=== PATIENT | male | born 1995 | race African-American/Black ===

== ENCOUNTER 2017-04-21 14:21 | Emergency (ER) | payer OTHER ==
--- NOTE | 2017-04-21 14:17 | EDPHY ---
H & P Constitutional: Initial Vital Signs Temperature (C) 36.5 C 04/21/17 14:21 Heart Rate 73 04/21/17 14:21 Respiratory Rate 18 04/21/17 14:21 Blood Pressure 140/94 H 04/21/17 14:21 O2 Sat (%) 96 04/21/17 14:21 O2 Delivery Mode Room Air Allergies/Adverse Reactions: peanut Allergy (Verified 04/21/17 14:29) Home Medications: Medication Instructions Recorded Xanax 04/21/17 Medical Decision Making - Diagnostics Imaging: Discussed imaging studies w/ machine scallop cutter Radiologist, I viewed and interpreted images myself - Diagnostics Imaging Results: Imaging Impressions Head CT 04/21/17 14:24 Impression: Negative. No acute fracture or evidence of acute intracranial injury. Findings discussed with Emergency Department physician bilingual executive assistant, Rell Wilkerson PA-C on April 21, 2017 at 1508 hours. ED Course/Re-evaluation: CHIEF COMPLAINT: Seizure, headache HISTORY OF PRESENT ILLNESS: The patient is a 21 y/o male arriving via EMS in a c-collar following a witnessed seizure this afternoon. He remembers skateboarding to work this afternoon and then nothing until arriving in the ED. It is unknown if he fell and then seized or had a seizure and then falling. He is currently complaining of a mild occipital headache. He denies weakness, paresthesias, midline spinal pain, incontinence, injury, or other complaints. He does mention using Xanax and Ecstasy regularly for recreation. His last Xanax use was 2 days ago. He denies history of seizure disorder or withdrawal seizures related to alcohol or benzodiazepine use. No other pertinent medical history. REVIEW OF SYSTEMS: A 10 point review of systems was performed and is negative with the exception of the elements mentioned in the history of present illness. PHYSICAL EXAM: HR, BP, O2 Sat, RR. Temp noted General Appearance: Alert, well hydrated, appropriate, and non-toxic appearing. Head: Atraumatic without scalp tenderness or obvious injury Eyes: Pupils equal, round, reactive to light and accommodation, EOMI, no trauma , no injection. Ears: Clear bilaterally, no perforation, normal landmarks Nose: Atraumatic, no rhinorrhea, clear. Throat: There is no erythema or exudates, no lesions, normal tonsils, mucus membranes moist. Neck: Supple, 2+ carotid upstroke, nontender, no lymphadenopathy. Respiratory: No retractions, no distress, no wheezes, and no accessory muscle use. Lungs are clear to auscultation bilaterally. Cardiovascular: Regular rate and rhythm, no murmurs, rubs, or gallops. Bilateral carotid, radial, dorsalis pedis, and posterior tibial pulses intact. Good capillary refill all extremities. Gastrointestinal: Abdomen is soft, nontender, non-distended, no masses, no rebound, no guarding, no peritoneal signs. Musculoskeletal: Normal active ROM of all extremities, atraumatic. Neurological: Alert, appropriate, and interactive. The patient has normal DTRs and non-focal cranial nerves, motor, sensory, and cerebellar exam. Skin: No rashes, good turgor, no nodules on palpation. Past medical history: Substance abuse Past surgical history: denies Family history: noncontributory Social history: Lives in [place]. Employed. DIAGNOSTICS/PROCEDURES/CRITICAL CARE TIME: Head CT: negative. DIFFERENTIAL DIAGNOSIS: The differential diagnosis for the patient's seizure included but was not limited to benzodiazepine withdrawal seizure, electrolyte abnormality, alcohol withdrawal, medication noncompliance, head injury, DIP GUIDER STOVES structural abnormality, and break-through seizure. MEDICAL DECISION MAKING: This is a 21 y/o male with a history of benzodiazepine abuse who presents for evaluation of a headache following a witnessed seizure. He complains of an occipital headache, but is otherwise asymptomatic. He has no known history of prior seizures. He is neurovascularly intact without visible trauma or midline spinal tenderness. C-spine cleared clinically and c-collar removed by myself. Plan for basic labs, EtOH, and head CT. Head CT negative per Dr. Vásquez, radiologist. Patient will be discharged home with recommendation to avoid polysubstance abuse and follow up with neurologist this week. Standard seizure precautions given. Patient understands follow up instructions. Return precautions given. (Carl Kenny) 3:35 p.m.: The patient was signed out to me by Dr. Kenny at shift change.The computer system crashed prior to discharging this patient and I was unable to check his medical record. CT head is negative per Dr. Vásquez. I discussed findings with the patient. He complains of a mild headache at this time. I recommended Tylenol for symptomatic treatment. Patient was instructed not to drive until he sees a neurologist. I provided him with a referral to Dr. Garcia, Neurology. (Flori,Amarilys S) - Data Points Laboratory Results: Laboratory Results 04/21/17 14:30 04/21/17 14:30 04/21/17 04/21/17 14:30 14:30 WBC 14.19 10^3/uL H 10^3/uL (3.80-9.50) RBC 5.51 10^6/uL 10^6/uL (4.40-6.38) Hgb 17.4 g/dL g/dL (13.7-17.5) Hct 50.3 % % (40.0-51.0) MCV 91.3 fL fL (81.5-99.8) MCH 31.6 pg pg (27.9-34.1) MCHC 34.6 g/dL g/dL (32.4-36.7) RDW 11.7 % % (11.5-15.2) Plt Count 391 10^3/uL 10^3/uL (150-400) MPV 9.1 fL fL (8.7-11.7) Neut % (Auto) 58.2 % % (39.3-74.2) Lymph % (Auto) 29.5 % % (15.0-45.0) [place] % (Auto) 7.4 % % (4.5-13.0) Eos % (Auto) 3.8 % % (0.6-7.6) Baso % (Auto) 0.5 % % (0.3-1.7) Nucleat RBC Rel Count 0.0 % % (0.0-0.2) Absolute Neuts (auto) 8.26 10^3/uL H 10^3/uL (1.70-6.50) Absolute Lymphs (auto) 4.19 10^3/uL H 10^3/uL (1.00-3.00) Absolute Monos (auto) 1.05 10^3/uL H 10^3/uL (0.30-0.80) Absolute Eos (auto) 0.54 10^3/uL H 10^3/uL (0.03-0.40) Absolute Basos (auto) 0.07 10^3/uL 10^3/uL (0.02-0.10) Absolute Nucleated RBC 0.00 10^3/uL 10^3/uL (0-0.01) Immature Gran % 0.6 % % (0.0-1.1) Immature Gran # 0.08 10^3/uL 10^3/uL (0.00-0.10) Sodium 144 mEq/L mEq/L (134-144) Potassium 3.4 mEq/L L mEq/L (3.5-5.2) Chloride 102 mEq/L mEq/L (97-110) Carbon Dioxide 9 mEq/l L* mEq/l (22-31) Anion Gap 33 mEq/L H mEq/L (8-16) BUN 9 mg/dL mg/dL (7-23) Creatinine 1.2 mg/dL mg/dL (0.7-1.3) Estimated GFR > 60 Glucose 131 mg/dL H mg/dL (70-100) Calcium 10.3 mg/dL mg/dL (8.5-10.4) Ethyl Alcohol < 10 mg/dL mg/dL (0-10) Medications Given: Discontinued Medications Sodium Chloride (Ns) 1,000 mls @ 0 mls/hr IV ONCE ONE; Wide Open PRN Reason: Protocol Stop: 04/21/17 14:24 Last Admin: 04/21/17 14:50 Dose: 1,000 mls Departure - Departure Disposition: Home, Routine, Self-Care Clinical Impression: Benzodiazepine abuse Drug withdrawal seizure Qualifiers: Complication of substance-induced condition: uncomplicated Qualified Code(s): F19.230 - Other psychoactive substance dependence with withdrawal, uncomplicated Condition: Good Instructions: New-Onset Seizure in Adults (ED) Additional Instructions: 1. Do not abuse benzodiazepines, alcohol, or other drugs. 2. Follow up with neurologist in the next week to discuss management of your seizure. 3. No driving, operating heavy machinery, or performing any other task that could put you or others at risk should you experience another seizure until you are cleared by a neurologist. Referrals: Valeriy Garcia MD [Medical Doctor] - As per Instructions Report Scribed for: Carl Kenny Report Scribed by: Keysha Schultz Date of Report: 04/21/17 Time of Report: 15:13
[2017-04-21] MEDS ORDERED: NS 1,000 ML IV ONE (14:23)
[2017-04-21 14:29] VITALS: RESP 18; TEMP 97.7
[2017-04-21 14:41] LABS: % IMMATURE GRANULYOCYTES 0.6 % (0.0-1.1); ABSOLUTE IMMATURE GRANULOCYTES 0.08 10^3/uL (0.00-0.10); ADD DIFF? NO; ADD MORPH? NO; ADD SCAN? NO; ATYPICAL LYMPHOCYTE FLAG 10 (0-99); FRAGMENT RBC FLAG 0 (0-99); HEMATOCRIT 50.3 % (40.0-51.0); HEMOGLOBIN 17.4 g/dL (13.7-17.5); LEFT SHIFT FLG 0 (0-99); LIPEMIA HEMOLYSIS FLAG 90 (0-99); MEAN CELL HEMOGLOBIN 31.6 pg (27.9-34.1); MEAN CELL HEMOGLOBIN CONCENTR. 34.6 g/dL (32.4-36.7); MEAN CELL VOLUME 91.3 fL (81.5-99.8); MEAN PLATELET VOLUME 9.1 fL (8.7-11.7); PLATELET CLUMPS FLAG 0 (0-99); PLATELET COUNT 391 10^3/uL (150-400); RED BLOOD CELL COUNT 5.51 10^6/uL (4.40-6.38); RED CELL DISTRIBUTION WIDTH 11.7 % (11.5-15.2)
[2017-04-21 14:57] VITALS: BP 130/87; PULSE 62; O2SAT 97
[2017-04-21 15:02] LABS: ANION GAP 33 mEq/L (8-16); CALCIUM 10.3 mg/dL (8.5-10.4); CHLORIDE 102 mEq/L (97-110); CREATININE 1.2 mg/dL (0.7-1.3); ETHANOL SERUM < 10 mg/dL (0-10); GLOMERULAR FILTRATION RATE > 60; GLUCOSE 131 mg/dL (70-100); POTASSIUM 3.4 mEq/L (3.5-5.2); SODIUM 144 mEq/L (134-144)
[2017-04-21 15:07] LABS: CARBON DIOXIDE 9 mEq/l (22-31)
== END 2017-04-21 16:10 | disposition home or self-care (01) ==
DX: F19.230 Other psychoactive substance dependence with withdrawal, uncomplicated (principal); E86.9 Volume depletion, unspecified
CPT/HCPCS: G0480